=== PATIENT | male | born 1985 | race Asian ===

== ENCOUNTER 2025-01-07 01:00 | Emergency (ER) | payer SELFPAY ==
[2025-01-07] MEDS ORDERED: Sulfamethoxazole/Trimethoprim 800-160 MG Tab PO ONE (01:01)
[2025-01-07] MEDS ORDERED: Acetaminophen/HYDROcodone 325-5 MG Tab PO ONE (01:01)
[2025-01-07] MEDS ORDERED: Sodium Chloride 0.9% 10 ML Syringe FLUSH PRN (01:23)
[2025-01-07] MEDS: Ketorolac 30 MG/ML SDV IVPUSH ONE (01:35)
[2025-01-07 01:42] LABS: BASOPHILS PERCENT AUTO 0.1 % (0.3-3.8); BLOOD UREA NITROGEN,BUN 11 mg/dL (7-18); CALCIUM 8.3 mg/dL (8.6-10.2); CARBON DIOXIDE,CO2 27 mmol/L (21-32); CHLORIDE,CL 103 mmol/L (100-110); EOSINOPHILS ABSOLUTE AUTO 0.3 x10-3/uL (0.0-0.6); EOSINOPHILS PERCENT AUTO 3.4 % (0.1-6.8); EST CRCL DRUG DOSING (CG) 88.61 mL/min; ESTIMATED GFR 98 mL/min (>60); GLUCOSE RANDOM 110 mg/dL (80-116); HEMOGLOBIN 13.1 g/dL (12.9-17.7); LYMPHOCYTES ABSOLUTE AUTO 2.7 x10-3/uL (0.5-4.5); LYMPHOCYTES PERCENT AUTO 35.1 % (15.8-45.3); MEAN CORPUSCULAR HEMOGLOBIN 30.4 pg (27.0-33.3); MEAN CORPUSCULAR HGB CONC 32.7 g/dL (28.7-35.3); MEAN CORPUSCULAR VOLUME 93.1 fL (80.8-98.7); MEAN PLATELET VOLUME 6.8 fL (6.7-11.0); MONOCYTES ABSOLUTE AUTO 0.7 x10-3/uL (0.0-1.2); MONOCYTES PERCENT AUTO 9.6 % (5.5-15.2); NEUTROPHILS ABSOLUTE AUTO 3.9 x10-3/uL (1.7-6.9); NEUTROPHILS PERCENT AUTO 51.8 % (40.3-71.8); PLATELET COUNT,PLT 359 x10(3)uL (117-477); POTASSIUM,K 3.6 mmol/L (3.5-5.3); RED CELL DISTRIBUTION WIDTH 13.4 % (12.4-15.0); SODIUM,NA 137 mmol/L (135-145); WHITE BLOOD CELL COUNT,WBC 7.6 x10-3/uL (3.2-10.1)
[2025-01-07] MEDS: Iopamidol 755 Mg/ML 100 ML Bottle IV ONE (02:00)
[2025-01-07] MEDS: fentaNYL 100 MCG/2 ML SDV IVPUSH PRN (02:25)
== END 2025-01-07 02:34 | disposition home or self-care (01) ==
LOC: FB.ED 01:00
DX: L02.412 Cutaneous abscess of left axilla (principal)
CPT/HCPCS: 10060; 71260; 80048; 85025; 86140; 96374; 96375; 99284; A9270; J1885; J3010; Q9967